=== PATIENT | male | born 1975 ===

== ENCOUNTER 2022-07-03 19:37 | Emergency (ER) | payer BC ==
[2022-07-03] MEDS ORDERED: Lidocaine 1% 20 ML MDV INFILT ONE (19:38)
== END 2022-07-03 20:48 | disposition home or self-care (01) ==
LOC: FB.ED 19:37
DX: S61.012A Laceration without foreign body of left thumb without damage to nail, initial encounter (principal); W26.8XXA Contact with other sharp object(s), not elsewhere classified, initial encounter
CPT/HCPCS: 12001; 99282